=== PATIENT | male | born 1980 | race Caucasian/White ===

== ENCOUNTER 2024-08-21 12:27 | Emergency (ER) | payer OTHER ==
[~2024-08-21] VITALS: Ht 170.2 cm; Wt 52.2 kg
[2024-08-21 12:39] VITALS: BP 127/74; PULSE 79; RESP 16; TEMP 97.9; O2SAT 98
[2024-08-21] MEDS ORDERED: BOOSTRIX IM ONE (12:46)
[2024-08-21] MEDS: BOOSTRIX IM ONE (12:52)
[2024-08-21 12:54] VITALS: BP 124/74; PULSE 84; RESP 18; O2SAT 0
== END 2024-08-21 13:06 | disposition home or self-care (01) ==
LOC: ER 12:27
DX: S61.210A Laceration without foreign body of right index finger without damage to nail, initial encounter (principal); F17.290 Nicotine dependence, other tobacco product, uncomplicated; X58.XXXA Exposure to other specified factors, initial encounter; Y93.89 Activity, other specified; Y92.89 Other specified places as the place of occurrence of the external cause; Y99.8 Other external cause status
CPT/HCPCS: 12002; 90471; 90715; 99283